=== PATIENT | male | born 1945 ===

== ENCOUNTER 2021-08-25 10:46 | Inpatient (IN) | payer OTHER ==
[~2021-08-25] VITALS: Ht 182.9 cm; Wt 82.6 kg
[2021-08-25] MEDS ORDERED: LANTUS (14:15)
[2021-08-25] MEDS ORDERED: HUMLOG (14:16)
[2021-08-25] MEDS ORDERED: METFORMIN HCL1000 M1 (14:17)
[2021-08-27] MEDS ORDERED: AMOX-CLAV 875-1 EACH PO (10:25)
[2021-08-27] MEDS ORDERED: PERCOCET 5-3251 EACH PO (10:25)
[2021-08-27] MEDS ORDERED: COLACE100 MG PO (10:25)
[2021-08-27] MEDS ORDERED: NEURONTIN800 MG PO (10:25)
[2021-08-27] MEDS ORDERED: MEDROLPACK PO (10:25)
[2021-08-27] MEDS ORDERED: DIAZEPAM5 MG PO (10:25)
[2021-08-28] MEDS ORDERED: BACTRIM DS TAB1 EACH PO (07:20)
== END 2021-08-28 16:14 | DRG 455 ==
LOC: ADM 11:15 → PED 08-27 05:40 → O/R 08-27 05:40 → OB/GYN 08-27 10:30 → EDSTATUS 08-27 11:15 → OB/GYN 08-27 11:15 → CIR.AMB 08-27 11:15 → PED 08-27 14:34
PROVIDERS: ADMIT Orthopaedic Surgery Orthopaedic Surgery of the Spine; ATTEND Orthopaedic Surgery Orthopaedic Surgery of the Spine
PROC: 0SG10J1 Fusion of 2 or more Lumbar Vertebral Joints with Synthetic Substitute, Posterior Approach, Posterior Column, Open Approach (ICD-10-PCS; 2021-08-27)
PROC: 07DR3ZZ Extraction of Iliac Bone Marrow, Percutaneous Approach (ICD-10-PCS; 2021-08-27)
PROC: XRGC0F3 Fusion of 2 or more Lumbar Vertebral Joints using Radiolucent Porous Interbody Fusion Device, Open Approach, New Technology Group 3 (ICD-10-PCS; principal; 2021-08-27 10:30)
DX: M48.062 Spinal stenosis, lumbar region with neurogenic claudication (principal); M41.56 Other secondary scoliosis, lumbar region